=== PATIENT | female | born 1975 | race Caucasian/White ===

== ENCOUNTER 2022-02-25 16:02 | Outpatient (CLI) | payer OTHER | END 2022-02-25 16:03 | disposition home or self-care (01) | LOC: CSHLAB 16:02 | PROVIDERS: ATTEND Obstetrics & Gynecology | DX: Z20.822 Contact with and (suspected) exposure to COVID-19 (principal) | CPT/HCPCS: 87811 ==

== ENCOUNTER 2022-02-27 07:27 | Day surgery (SDC) | payer SELFPAY ==
[2022-02-25 12:13] VITALS: BMI 18.3
[2022-02-27] MEDS ORDERED: Ondansetron PF 4 MG/2 ML Vial ONE (07:42)
[2022-02-27] MEDS ORDERED: PROPOFOL 20 ML ONE (07:42)
[2022-02-27] MEDS ORDERED: Dexamethasone 4 mg/ml Vial ONE (07:42)
[2022-02-27] MEDS ORDERED: Midazolam HCl 2 mg/2 ml Vial ONE (07:42)
[2022-02-27] MEDS ORDERED: Fentanyl 100 MCG/2 ML VIAL ONE (07:42)
[2022-02-27] MEDS ORDERED: Lidocaine 1% PF 5 ML VIAL ONE (07:42)
[2022-02-27] MEDS ORDERED: Lidocaine 2% Jelly 5 ML TUBE ONE (07:50)
[2022-02-27] MEDS ORDERED: Promethazine HCl 25 MG/ML VIAL ONE (07:50)
[2022-02-27] MEDS ORDERED: Doxycycline 100 MG in Sodium Chloride 0.9% 100 ML IVPB SCH (08:30)
[2022-02-27] MEDS ORDERED: Ketorolac Tromethamine 30 MG/ML VIAL ONE (08:44)
[2022-02-27 08:48] LABS: #Eosinphils 0.2 10x3/uL (0.0-0.5); #Monocytes 0.5 10x3/uL (0.0-1.1); #Neutrophils 2.3 10x3/uL (1.5-8.4); %Basophils 0.7 % (0.0-2.0); %Eosinophils 5.6 % (0.0-6.0); %Lymphocytes 29.6 % (18.0-47.0); %Monocytes 10.8 % (0.0-10.0); %Neutrophils 53.1 % (40.0-75.0); Hemoglobin 13.7 g/dL (12.0-15.5); Mean Corpuscular HGB CONC 34.9 g/dL (32.0-36.0); Mean Corpuscular Hemoglobin 30.4 pg (27.0-33.0); Mean Corpuscular Volume 87.1 fl (81.6-98.3); Mean Platelet Volume 9.6 fl (7.4-10.4); Platelet Count 268 10x3/uL (150-450); RBC Distribution Width 11.9 % (11.5-14.5); White Blood Cell (WBC) Count 4.3 10x3/uL (3.5-10.5)
[2022-02-27] MEDS ORDERED: Lidocaine 1% MPF 2 ML VIAL ONE (09:11)
[2022-02-27] MEDS ORDERED: ePHEDrine Sulfate 50 MG/10 ML VIAL ONE (09:50)
== END 2022-02-27 12:20 | disposition home or self-care (01) ==
LOC: CSHSDC 07:27
PROVIDERS: ATTEND Obstetrics & Gynecology
PROC: 10D17ZZ Extraction of Products of Conception, Retained, Via Natural or Artificial Opening (ICD-10-PCS; principal; 2022-02-27)
DX: O02.89 Other abnormal products of conception (principal); Z20.822 Contact with and (suspected) exposure to COVID-19
CPT/HCPCS: 36415; 85025; 86850; 86900; 86901; 88300; 88305; J1100; J1885; J2250; J2405; J2550; J2704; J3010; J3490